=== PATIENT | male | born 1995 | race Caucasian/White ===

== ENCOUNTER 2021-05-16 10:42 | Emergency (ER) | payer BC, OTHER ==
[2021-05-16 10:59] VITALS: TEMP 98.5
[2021-05-16 13:06] VITALS: BP 132/66; PULSE 82; RESP 16
--- NOTE | 2021-05-16 13:14 | ED ---
Skin/Abscess/FB HPI - General Chief complaint: Skin/Abscess/Foreign Body Stated complaint: Bee Sting Time Seen by Provider: 05/16/21 13:10 Source: patient, RN notes reviewed, old records reviewed Mode of arrival: ambulatory Limitations: no limitations - History of Present Illness Initial comments: Patient is a 26-year-old male presenting to the emergency Department with concerns of a worsening swelling of his left hand after he got stung by a bee last night. Patient states she was stung earlier in the summer and had some mild swelling at that point. He was stung last night about 4 PM on his left thumb area and noted that the swelling was getting worse this morning. He did take Zyrtec and Benadryl yesterday which did help. He is having no chest pain, no difficulty in breathing, no swelling anywhere else. He denies ALLERGIES to anything else. He denies any pertinent past medical history. Denies any fever or chills, no nausea or vomiting, no rashes. He has no further complaints today. His vitals are stable upon arrival. - Related Data Previous Rx's Medication Instructions Recorded EPINEPHrine (Auto Inject) [Epipen] 0.3 mg IM ONCE PRN #2 each 05/16/21 predniSONE 50 mg PO DAILY #5 tab 05/16/21 Allergies Allergy/AdvReac Type Severity Reaction Status Date / Time No Known Allergies Allergy Verified 05/16/21 10:59 Review of Systems ROS Statement: Those systems with pertinent positive or pertinent negative responses have been documented in the HPI. ROS Other: All systems not noted in ROS Statement are negative. Past Medical History Additional Past Medical History / Comment(s): nose bleeds History of Any Multi-Drug Resistant Organisms: None Reported Past Surgical History: Adenoidectomy Past Psychological History: No Psychological Hx Reported Smoking Status: Vaper Past Alcohol Use History: Occasional Past Drug Use History: Marijuana General Exam - General Exam Comments Initial Comments: GENERAL: Patient is well-developed and well-nourished. Patient is nontoxic and in no acute distress. HEAD: Atraumatic, normocephalic. EYES: Pupils equal round and reactive to light, extraocular movements intact, sclera anicteric, conjunctiva are normal. Eyelids were unremarkable. ENT: Nares patent, oropharynx clear without exudates. Moist mucous membranes. No swelling of the uvula NECK: Normal range of motion, supple without lymphadenopathy or JVD. LUNGS: Unlabored respirations. Breath sounds clear to auscultation bilaterally and equal. No wheezes rales or rhonchi. HEART: Regular rate and rhythm without murmurs, rubs or gallops. ABDOMEN: Soft, nontender, normoactive bowel sounds. No guarding, no rebound. No masses appreciated. : Deferred MUSCULOSKELETAL: Normal extremities with adequate strength and normal range of motion, no pitting or edema. No clubbing or cyanosis. NEUROLOGICAL: Patient is alert and oriented x 3. SKIN: Warm, Dry, normal turgor, no rashes or lesions noted. She has some mild swelling noted to the left thumb, left hand from bee sting. Some mild erythema but no signs of infection, neurovascular intact. Limitations: no limitations Course Vital Signs 05/16/21 05/16/21 10:57 13:02 Temperature 98.5 F Pulse Rate 86 82 Respiratory 20 16 Rate Blood Pressure 127/82 132/66 O2 Sat by Pulse 97 100 Oximetry Medical Decision Making - Medical Decision Making Patient is a 26-year-old male here for a bee sting to left hand that occurred yesterday about 4 PM. He denies any ALLERGIES. He feels like the swelling was worse today so wanted be evaluated. His exam is otherwise unremarkable except for some mild swelling to the left thumb and left hand. He is in no acute distress, no swelling of the face or throat. Patient will be started on steroids, recommended taking Zyrtec and/or Benadryl for symptomatically relief. He can also apply ice to the area. He is agreeable with this plan of care. He is requesting an EpiPen for worsening episodes. I advised him only to use this in case of emergency after a bee sting such as difficulty in breathing, chest pain or severe rash and swelling. He is agreeable to this. He is stable for discharge. Return parameters were discussed with him and he verbalized understanding. Case discussed with Dr. Quiñones. Disposition Clinical Impression: Bee sting, Swelling of left hand Disposition: HOME SELF-CARE Condition: Stable Instructions (If sedation given, give patient instructions): Insect Bite or Sting (ED) Additional Instructions: Please return to the Emergency Department if symptoms worsen or any other concerns. Take steroids as prescribed. May take Zyrtec and/or Benadryl for symptomatic relief. Apply ice to left hand. Follow-up with your doctor. Prescriptions: EPINEPHrine (Auto Inject) [Epipen] 0.3 mg IM ONCE PRN #2 each PRN Reason: Anaphylaxis predniSONE 50 mg PO DAILY #5 tab Is patient prescribed a controlled substance at d/c from ED?: No Referrals: None,Stated [Primary Care Provider] - 1-2 days Time of Disposition: 13:14
== END 2021-05-16 13:32 | disposition home or self-care (01) ==
LOC: EC 10:42
DX: T63.441A Toxic effect of venom of bees, accidental (unintentional), initial encounter (principal)
CPT/HCPCS: 99283

== ENCOUNTER → 2023-11-28 | Outpatient (CLI) | payer OTHER ==
--- NOTE | 2023-11-28 13:05 | XR ---
EXAMINATION TYPE: XR chest 2V DATE OF EXAM: 11/28/2023 COMPARISON: 03/29/2016 HISTORY: Chest pain TECHNIQUE: Frontal and lateral views of the chest are obtained. FINDINGS: There is no focal air space opacity. No evidence for pneumothorax. No pleural effusion. The cardiac silhouette size is within normal limits. The osseous structures are grossly intact. IMPRESSION: 1. No acute cardiopulmonary process.
== END | disposition home or self-care (01) ==
LOC: RADXRMAIN 12:43
PROVIDERS: ATTEND Internal Medicine
DX: S22.42XD Multiple fractures of ribs, left side, subsequent encounter for fracture with routine healing (principal)
CPT/HCPCS: 71046

== ENCOUNTER → 2024-05-15 | Outpatient (CLI) | payer OTHER ==
[2024-05-15 15:24] LABS: Basophils # (A) 0.05 X 10*3/uL (0.00-0.10); Eosinophils # (A) 0.18 X 10*3/uL (0.04-0.35); Eosinophils % (A) 3.4 %; HCT 45.2 % (39.6-50.0); HGB 15.3 g/dL (13.0-17.0); Lymphocytes # (A) 1.78 X 10*3/uL (0.90-5.00); MCH 30.6 pg (27.0-32.0); MCHC 33.8 g/dL (32.0-37.0); MCV 90.4 FL (80.0-97.0); Mean Platelet Volume 10.3 FL (9.5-12.2); Monocytes # (A) 0.48 X 10*3/uL (0.20-1.00); Monocytes % (A) 9.2 %; NRBC Per 100 WBC 0 X 10*3/uL (0.00-0.01); Neutrophils # (A) 2.71 X 10*3/uL (1.80-7.70); Neutrophils % (A) 51.6 %; Platelet Count 213 X 10*3/uL (140-440); RDW 12.5 % (11.5-14.5); WBC 5.24 X 10*3/uL (4.50-10.00)
[2024-05-15 15:40] LABS: Appearance,Urine Clear (Clear); Bilirubin,Urine Negative (Negative); Blood,Urine Negative (Negative); Color,Urine Yellow (Yellow); Ketones,Urine Negative (Negative); Nitrite,Urine Negative (Negative); Specific Gravity,Urine 1.009 (1.001-1.030); Urobilinogen,Urine 0.2 E.U./DL
[2024-05-15 16:40] LABS: Chol/HDL Ratio 5.03 Ratio; LDL Cholesterol,Calculated 160.4 mg/dL (0.0-131.0)
[2024-05-15 16:41] LABS: ALT 24 U/L (10-49); AST 21 U/L (14-35); Albumin/Globulin Ratio 2.08 Ratio (1.60-3.17); Alkaline Phosphatase 60 U/L (41-126); BUN/Creat Ratio 15.73 Ratio (12.00-20.00); Blood Urea Nitrogen 17.3 mg/dL (9.0-27.0); Calcium 9.8 mg/dL (8.7-10.3); Chloride 102 mmol/L (96-109); Globulin 2.4 g/dL (1.6-3.3); Glucose 107 mg/dL (70-110); Potassium 4.8 mmol/L (3.5-5.5); Prostate Specific Antigen 0.24 ng/mL (0.000-2.500); Sodium 140 mmol/L (135-145); Total Bilirubin 0.6 mg/dL (0.3-1.2); Total Protein 7.4 g/dL (6.2-8.2)
== END | disposition home or self-care (01) ==
LOC: LABWHC1 10:53
PROVIDERS: ATTEND Internal Medicine
DX: Z00.00 Encounter for general adult medical examination without abnormal findings
CPT/HCPCS: 36415; 80053; 80061; 81003; 82306; 83036; 84153; 84403; 84443; 85025

== ENCOUNTER → 2024-05-27 | Outpatient (CLI) | payer OTHER ==
[2024-05-27 14:52] VITALS: BP 125/77; PULSE 76; RESP 16; TEMP 97.4
--- NOTE | 2024-05-27 15:29 | P.SLEEP ---
History of Present Illness DATE: 05/27/2023 CONSULTATION/NEW PATIENT EVALUATION HISTORY OF PRESENT ILLNESS/SLEEP-WAKE EVALUATION: 29-year-old gentleman had b een evaluated in the sleep center for possible obstructive sleep apnea hypopnea syndrome. SLEEP SCHEDULE: Usually sleep schedule from 910:30 PM to 5:30 AM on weekdays and from 11 PM to 910 AM on weekend. FALLING ASLEEP: No problems with falling asleep. DURING SLEEP: Patient has loud snoring and witnessed episodes of stop breathing during the sleep. Positive history of twitching legs during the night. No history of hypnogogical hallucinations, sleep paralysis, or cataplexy. DURING THE DAY/WAKE STATE: In the morning patient wake up tired, falling asleep during the day, has episodes of irritability, depression, anxiety.. [place] sleepiness scale is significantly increased to 11. Patient may take 2 naps during the day. PAST MEDICAL HISTORY: Sinuses problems. PAST SURGICAL HISTORY: Adenoidectomy. MEDICATIONS: None at the present time. SOCIAL HISTORY: Please see below. FAMILY HISTORY: Hypertension, arthritis, sleep apnea, snoring, bronchitis. REVIEW OF SYSTEMS: Loud snoring, stop breathing during sleep, twitching legs during the night. No fevers. No double vision. No recent chest pain. No shortness of breath. No abdominal pain. No bleeding episodes. No blood in urine. No seizure episodes. PHYSICAL EXAMINATION: GENERAL: A pleasant patient without any distress. VITAL SIGNS: Please see below. Weight 215 pounds, BMI 34.7. HEENT: PERRLA, EOMI. Evaluation of oropharynx showed tongue protrudes midline, low position of soft palate Mallampati 2. NECK: Supple. No JVD. Thyroid is not palpable. 15.5 inches in circumference. LUNGS: Clear to percussion and to auscultation. Good air exchange. No wheezing or rhonchi. HEART: S1, S2 regular. No murmurs, gallops or rubs. ABDOMEN: Soft and nontender. Bowel sounds are present. No organomegaly appreciated. EXTREMITIES: No clubbing or cyanosis. TOWER FOREMAN: Awake, alert, and oriented x3. Cranial nerves 2 to 7 intact. There is no fasciculation or atrophy noted. No focal deficits observed. ASSESSMENT: 1. Loud snoring, witnessed episodes of stop breathing during the sleep, sleepiness during the day with [place] Sleepiness Scale increased to 11. Possible obstructive sleep apnea hypopnea syndrome. 2. Twitching of the legs, periodic limb movements. 3. Status postadenoidectomy. 4. History of sinuses problems. 5 history of depression episodes. 6 . Mild obesity, by BMI 34.7 7. compressed air pile driver operator. PLAN: 1. Polysomnography for evaluation of patient's breathing during sleep and to check for periodic limb movements. 2. Following plan after reading sleep study. 3. Preferable position during sleep on the side. 4. No driving if patient feels any sleepiness. Patient is aware of civil and criminal liability for unsafe driving. 5. Sleep hygiene with regular sleep time for at least 7.5-8 hours. 6. Watching weight. Thank you very much for referring this patient for consultation. Sincerely, Prem Bowling MD, PhD, FAASM. Diplomat of [employer], Sleep Medicine Board by [employer] Global [employer] [facility] [place] cc: Sergio Radford MD Past Medical History Past Medical History: Sleep Apnea/CPAP/BIPAP Additional Past Medical History / Comment(s): snore, nose bleeds, deviated septum History of Any Multi-Drug Resistant Organisms: None Reported Past Surgical History: Adenoidectomy Past Anesthesia/Blood Transfusion Reactions: No Reported Reaction Past Psychological History: No Psychological Hx Reported Smoking Status: Former smoker, Vaper Past Alcohol Use History: Occasional Past Drug Use History: Marijuana - Past Family History Father Family Medical History: Pneumonia, Sleep Apnea/CPAP/BIPAP Additional Family Medical History / Comment(s): arthritis unknown type, bronchitis, smoker, snore Medications and Allergies Home Medications Medication Instructions Recorded Confirmed Type EPINEPHrine (Auto Inject) [Epipen] 0.3 mg IM ONCE PRN #2 each 05/16/21 Rx predniSONE 50 mg PO DAILY #5 tab 05/16/21 Rx Allergies Allergy/AdvReac Type Severity Reaction Status Date / Time No Known Allergies Allergy Verified 05/16/21 10:59 Physical Exam Vitals: Vital Signs Temp Pulse Resp BP Pulse Ox 05/27/24 14:50 97.4 F L 76 16 125/77 97 Intake and Output 05/27/24 05/27/24 05/27/24 06:59 14:59 22:59 Other: Weight 97.522 kg Sleep Note - Sleep Data ESS Total: 11 - Sleep Note Sleep Note: Temperature: 97.4 F Pulse Rate: 76 Respiratory Rate: 16 Blood Pressure: 125/77 SpO2: 97 Height: 5 ft 6 in Weight: 97.522 kg BMI: Neck Circumference: 15.5
== END ==
LOC: 3 N SLEEP 14:29
PROVIDERS: ATTEND Internal Medicine
CPT/HCPCS: 99211

== ENCOUNTER 2024-06-10 19:50 | Outpatient (CLI) | payer OTHER ==
--- NOTE | 2024-06-17 13:58 | P.PCN ---
Description of Procedure: POLYSOMNOGRAPHY REPORT PROCEDURE(S)/DATE(S): Polysomnography 06/10/2024 CLINICAL: Patient has been seen in the sleep center for evaluation of obstructive sleep apnea-hypopnea syndrome. Please see my consultation. Sleep study has been done for evaluation of patient breathing during the sleep. PROCEDURE: The standard montage for clinical polysomnography included the electroencephalogram, the electrooculogram, the mentalis surface electromyography and Lead II cardiography. The respiratory battery consisted of measurements of nasal/buccal air flow, pressure transducer measurements from nose, thoracic and/or abdominal effort and intercostal surface electromyography. Video monitoring has been done to check for any parasomnia events. Nocturnal oxyhemoglobin saturations were obtained by finger oximetry. Step-vasquez titration with positive airway pressure was utilized to control the respiratory events, if necessary. RESULTS: During the diagnostic sleep study sleep efficiency was normal 95.9%. Latency to sleep onset was was short 6.0 min. Sleep architecture showed stage NI was slightly increased to 9.0%, Delta sleep was short 3.3%, REM sleep was significantly decreased to 9.1%. Respiratory channel showed 0 obstructive apneas, 0 mixed apneas, 0 central apneas, 3 hypopneas.. Total apnea hypopnea index was 0.5. Lowest oxygen level was 91%. Heart rate was in the range between 47 and 59, average 52. EMG showed 0 periodic limb movements per hour. IMPRESSIONS: 1. No significant respiratory abnormalities have been documented during sleep study. 2. No significant periodic limb movements have been documented. 3. [place] Sleepiness Scale increased to 11, patient may take up to 2 naps during the day. Please see other impressions from consultation PLAN: 1. Sleep hygiene with regular time in bed for at least 7-1/2 hours. 2. Losing weight program. 3. No driving if feeling sleepiness. 4. I will see patient for follow-up visit to explain results of the test and recommendations. Thank you very much for allowing me to participate in the management of your patient. Sincerely, Prem Bowling MD, PhD, FAASM. Diplomat of [place] [employer], Sleep Medicine Board by [employer] Back Up Machine Operator [facility] [place] cc: Sergio Radford MD
== END 2024-06-11 06:15 | disposition home or self-care (01) ==
LOC: 3 N SLEEP 19:50
PROVIDERS: ATTEND Internal Medicine
DX: G47.33 Obstructive sleep apnea (adult) (pediatric) (principal); G47.61 Periodic limb movement disorder; G47.10 Hypersomnia, unspecified; Z87.891 Personal history of nicotine dependence
CPT/HCPCS: 95810

== ENCOUNTER → 2024-12-17 | Outpatient (CLI) | payer OTHER ==
[2024-12-17 20:36] LABS: Hepatitis A Antibody IgM Nonreactive (Nonreactive); Hepatitis B Core IgM Nonreactive (Nonreactive); Hepatitis B Surface Antigen Nonreactive (Nonreactive); Hepatitis C IgG Antibody Nonreactive (Nonreactive)
[2024-12-17 21:12] LABS: Ceruloplasmin 16.6 mg/dL (20.0-60.0)
--- NOTE | 2024-12-17 21:33 | XR ---
EXAMINATION TYPE: XR hand complete 3 views LT, XR elbow limited 2 views bilateral DATE OF EXAM: 12/17/2024 12:21 PM COMPARISON: None CLINICAL INDICATION: Male, 29 years old with history of Pain in left hand; PHH, pain FINDINGS: Left hand: Joint spaces are maintained. No marginal erosions or soft tissue calcifications. No acute fracture, s ubluxation, dislocation is seen. Elbows: Joint spaces in both elbows are maintained. Both anterior humeral and radiocapitellar lines are maint ained. No elbow joint effusions. No acute fracture, subluxation, dislocation on these 2 views. IMPRESSION: 1. Left hand: No acute osseous abnormality seen. 2. Bilateral elbows: 2 views submitted on either side show no acute osseous abnormality or joint effu maykel. [facility], , 12/17/2024 9:31 PM
[2024-12-18 00:10] LABS: % Iron Saturation 30.83 (15.00-50.00); ALT 59 U/L (10-49); AST 32 U/L (14-35); Albumin 4.7 g/dL (3.8-4.9); Albumin/Globulin Ratio 2.04 Ratio (1.60-3.17); Alkaline Phosphatase 55 U/L (41-126); Bilirubin, Conjugated <0.20 mg/dL (0.20-0.40); Bilirubin,Unconjugated >0.20 mg/dL (0.20-1.00); Globulin 2.3 g/dL (1.6-3.3); Iron 82 UG/DL (65-175); Total Bilirubin 0.4 mg/dL (0.3-1.2); Total Iron Binding Capacity 266 UG/DL (228-460)
== END | disposition home or self-care (01) ==
LOC: RADXRMAIN 11:38
PROVIDERS: ATTEND Internal Medicine
DX: M79.642 Pain in left hand (principal); R29.898 Other symptoms and signs involving the musculoskeletal system
CPT/HCPCS: 80074; 80076; 82390; 82525; 82728; 83516; 83540; 83550; 86038

== ENCOUNTER → 2024-12-31 | Outpatient (CLI) | payer OTHER ==
--- NOTE | 2024-12-31 09:06 | US ---
EXAMINATION TYPE: US liver DATE OF EXAM: 12/31/2024 COMPARISON: NONE CLINICAL INDICATION: Male, 29 years old with history of R79.89 ABNORMAL BLOOD CHEMISTRY; Elevated LFT s TECHNIQUE: Grayscale and color Doppler imaging of the right upper quadrant. FINDINGS: EXAM MEASUREMENTS: Liver Length: 16.3 cm Gallbladder Wall: 0.29 cm CBD: 0.26 cm, color Doppler imaging was utilized to isolate the common bile duct for measurement. Right Kidney: 11.4 x 5.3 x 4.2 cm OVER THE HORIZON TARGETING SUPERVISOR NOTES: *Exam is limited due to gas Pancreas: The pancreatic body is seen and shows no gross abnormality. The head and tail are obscured by bowel gas shadowing. Liver: Normal homogeneous appearance. No focal lesion seen. Gallbladder: Hyperechoic area seen that appears to be attached the fundal gallbladder wall: 0.5 x 0.4 x 0.5 cm. No abnormal wall thickening, hydropic change, shadowing stones, or surrounding fluid. Evidence for sonographic Bartholomew's sign: No CBD: Portions seen appear wnl Right Kidney: No hydronephrosis or masses seen IMPRESSION: 1. No shadowing gallstones or biliary ductal dilatation. 2. An adherent 5 mm nodule at the fundus of the gallbladder suspected gallbladder wall polyp. Six-mon th follow-up gallbladder ultrasound to reassess. [facility], , 12/31/2024 9:03 AM
== END | disposition home or self-care (01) ==
LOC: RADUSWWP 06:54
PROVIDERS: ATTEND Internal Medicine
DX: R79.89 Other specified abnormal findings of blood chemistry (principal); K82.8 Other specified diseases of gallbladder
CPT/HCPCS: 76705

== ENCOUNTER → 2025-01-05 | Outpatient (CLI) | payer OTHER ==
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
== END | disposition home or self-care (01) ==
LOC: RADMRIMAIN 20:45
PROVIDERS: ATTEND Internal Medicine
DX: M50.323 Other cervical disc degeneration at C6-C7 level (principal); M51.34 Other intervertebral disc degeneration, thoracic region; R29.898 Other symptoms and signs involving the musculoskeletal system
CPT/HCPCS: 72141; 72146